=== PATIENT | male | born 1995 ===

== ENCOUNTER 2018-02-09 22:28 | Emergency (ER) | payer OTHER ==
[2018-02-09 22:41] VITALS: BP 126/79; PULSE 84; RESP 20; TEMP 98.4; O2SAT 96
--- NOTE | 2018-02-09 23:19 | C.PDOC ---
History Of Present Illness 22yo male, presents to ED for evaluation of laceration to his left 3rd digit with a knife at home. Patient states his last tetanus vaccination was a few months ago. He denies any weakness, numbness or tingling to his fingers. He has no other medical complaints. Time Seen by Provider: 02/09/18 22:42 Chief Complaint (Nursing): Abnormal Skin Integrity History Per: Patient History/Exam Limitations: no limitations Onset/Duration Of Symptoms: Mins Current Symptoms Are (Timing): Still Present Quality Of Symptoms: Painful Past Medical History Reviewed: Historical Data, Nursing Documentation, Vital Signs Vital Signs: Last Vital Signs Temp 98.4 F 02/09/18 22:39 Pulse 84 02/09/18 22:39 Resp 20 02/09/18 23:33 BP 126/79 02/09/18 22:39 Pulse Ox 96 02/09/18 23:22 - Medical History PMH: No Chronic Diseases Surgical History: No Surg Hx Family History: States: No Known Family Hx - Social History Hx Alcohol Use: No Hx Substance Use: No Review Of Systems Except As Marked, All Systems Reviewed And Found Negative. Musculoskeletal: Positive for: Other (laceration to left 3rd digit) Neurological: Negative for: Weakness, Numbness Physical Exam - Physical Exam Appears: Non-toxic, No Acute Distress Skin: Normal Color Head: Normacephalic Eye(s): bilateral: Normal Inspection Neck: Supple Chest: Symmetrical Cardiovascular: Rhythm Regular Respiratory: Normal Breath Sounds Extremity: Normal ROM, No Tenderness, Capillary Refill (< 2 seconds), Other ( 1cm superficial laceration distally to DIP of left 3rddigit. No active bleeding , no tendon injury. ) Neurological/Psych: Oriented x3 ED Course And Treatment O2 Sat by Pulse Oximetry: 96 (RA) Pulse Ox Interpretation: Normal Progress Note: Laceration irrigated with normal saline and betadine; Dermabond and 2 steri-strips used to approximate and close wound. Patient given instructions for wound care and informed to follow up with PCP in 2-3 days. Disposition Counseled Patient/Family Regarding: Diagnosis, Need For Followup - Disposition Referrals: [facility] [Outside] Disposition: HOME/ ROUTINE Disposition Time: 23:18 Condition: STABLE Additional Instructions: Keep wound clean and dry x 2 days Follow with PMD or clinic in 2 days Return to ER if redness, swelling, fever or worse Instructions: Laceration Repair With Glue (DC) Forms: [facility] (Serbian) - Clinical Impression Clinical Impression: Finger laceration - PA / [employer] / Resident Statement MD/DO has reviewed & agrees with the documentation as recorded. - Scribe Statement The provider has reviewed the documentation as recorded by the Scribe (Emilie Sheffield) Provider Attestation: All medical record entries made by the Scribe were at my direction and personally dictated by me. I have reviewed the chart and agree that the record accurately reflects my personal performance of the history, physical exam, medical decision making, and the department course for this patient. I have also personally directed, reviewed, and agree with the discharge instructions and disposition.
== END 2018-02-09 23:33 | disposition home or self-care (01) ==
LOC: C.ER 22:28
DX: S61.213A Laceration without foreign body of left middle finger without damage to nail, initial encounter (principal); W26.0XXA Contact with knife, initial encounter; Y92.009 Unspecified place in unspecified non-institutional (private) residence as the place of occurrence of the external cause